=== PATIENT | male | born 1990 | race Caucasian/White ===

== ENCOUNTER 2017-12-20 17:14 | Emergency (ER) | payer OTHER ==
--- NOTE | 2017-12-20 17:20 | PDOC ---
History of Present Illness - History of Present Illness Initial Comments: 12/20/17 17:51 The patient is a 27 year old male with no significant PMH who presents to the emergency department with a left index finger injury that occurred earlier today. The patient reports that he was using a hammer when he hit his left index finger with it. The patient denies chest pain, shortness of breath, headache and dizziness. He denies any fever, chills, nausea, vomiting, diarrhea or constipation. The patient denies any other complaints. CONSTITUTIONAL: Absent: fever, no chills, no fatigue EYES: Absent: visual changes ENT: Absent: ear pain, no sore throat CARDIOVASCULAR: Absent: chest pain, no palpitations RESPIRATORY: Absent: cough, no SOB GI: Absent: abdominal pain, no nausea, no vomiting, no constipation, no diarrhea GENITOURINARY: Absent: dysuria, no frequency, no hematuria MUSKULOSKELETAL: (+) left index finger injury Absent: back pain, no arthralgia, no myalgia SKIN: Absent: rash NEURO: Absent: headache <Frederick Nunez - Last Filed: 12/20/17 17:51> - History of Present Illness Initial Comments: 12/20/17 17:49 Physical exam: Alert oriented well-developed well-nourished no acute distress cheerful and cooperative Afebrile, vital signs normal Trauma limited to the distal phalanx of the left index finger. There is a partial avulsion of the distal pulp involving the edge of the nail, radial aspect of the digit, not involving the joint. X-ray shows no fracture. Sensation to the distal phalanx appear to be impaired. However, flexion and extension of the DIP joint appears to be intact. Impression: Partial avulsion of the fingertip Plan: Antibiotics. Tetanus is up-to-date, one year ago. Dr. Carrington called and agrees to repair the injury in the emergency department. <Lucio Mcrae - Last Filed: 12/27/17 07:14> - General Chief Complaint: Injury Stated Complaint: INJURED LEFT INDEX FINGER HIT WITH HAMMER Time Seen by Provider: 12/20/17 17:17 Past History <Frederick Nunez - Last Filed: 12/20/17 17:51> - Suicide/Smoking/Psychosocial Hx Smoking History: Never smoked <Lucio Mcrae - Last Filed: 12/27/17 07:14> - Past Medical History Allergies/Adverse Reactions: Allergies Allergy/AdvReac Type Severity Reaction Status Date / Time No Known Allergies Allergy Verified 12/20/17 17:16 Home Medications: Ambulatory Orders Cephalexin [Keflex] 500 mg PO QID #20 capsule 12/20/17 *Physical Exam - Vital Signs Last Vital Signs Temp Pulse Resp BP Pulse Ox 98.2 F 84 18 118/85 100 12/20/17 17:15 12/20/17 17:15 12/20/17 17:15 12/20/17 17:15 12/20/17 17:15 <Frederick Nunez - Last Filed: 12/20/17 17:51> ED Treatment Course - Medications Given in the ED: ED Medications Discontinued Medications Generic Name Dose Route Start Last Admin Trade Name Freq PRN Reason Stop Dose Admin Cephalexin HCl 500 mg 12/20/17 17:26 12/20/17 17:35 Keflex - PO 12/20/17 17:27 500 mg ONCE ONE Administration <Frederick Nunez - Last Filed: 12/20/17 17:51> Medical Decision Making - Medical Decision Making X-rays showed soft tissue damage but no fracture or other abnormality of bone. Patient awaiting ER consultation with Dr. Carrington. Signed out to Dr. Hutchison 7 PM pending project management consultant evaluation and treatment. <Lucio Mcrae - Last Filed: 12/27/17 07:14> *DC/Admit/Observation/Transfer - Attestations Scribe Attestion: 12/20/17 17:52 Documentation prepared by Frederick Nunez, acting as certified medical biller for Lucio Catalan MD. <Frederick Nunez - Last Filed: 12/20/17 17:51> <Lucio Mcrae - Last Filed: 12/27/17 07:14> Diagnosis at time of Disposition: Finger laceration - Discharge Dispostion Disposition: HOME Condition at time of disposition: Stable - Prescriptions Prescriptions: Cephalexin [Keflex] 500 mg PO QID #20 capsule - Patient Instructions Additional Instructions: Keep the finger dry for the next 72 hours. Take Keflex one tablet 4 times a day for the next 5 days. Follow-up with Dr. Carrington in 1 week as per his instructions. Return to the emergency department immediately with ANY new, persistent or worsening symptoms. Continue any medications as previously prescribed by your physician. Thank you for coming to the Emergency Department today for your care. It was a pleasure to see you today. Please note that your evaluation is INCOMPLETE until you follow-up with your doctor.
[2017-12-20] MEDS ORDERED: CEPHALEXIN MONOHYDRATE 500 MG CAPSULE (UD) PO ONE (17:26)
[2017-12-20] MEDS ORDERED: CEPHALEXIN MONOHYDRATE 500 MG CAPSULE (UD) ONE (17:30)
[2017-12-20 17:31] VITALS: BP 118/85; PULSE 84; TEMP 98.2; BMI 26.4
[2017-12-20] MEDS ORDERED: LIDOCAINE HCL 1%, 10 MG/ML (20ML VIAL) ONE (17:31)
[2017-12-20] MEDS ORDERED: LIDOCAINE HCL 2% (20ML MULTI-DOSE VIAL) NR ONE (19:27)
--- NOTE | 2017-12-20 19:48 | PDOC ---
*Physical Exam - Vital Signs Last Vital Signs Temp Pulse Resp BP Pulse Ox 98.2 F 84 18 118/85 100 12/20/17 17:15 12/20/17 17:15 12/20/17 17:15 12/20/17 17:15 12/20/17 17:15 ED Treatment Course - Medications Given in the ED: ED Medications Discontinued Medications Generic Name Dose Route Start Last Admin Trade Name Carmelina PRN Reason Stop Dose Admin Cephalexin HCl 500 mg 12/20/17 17:26 12/20/17 17:35 Keflex - PO 12/20/17 17:27 500 mg ONCE ONE Administration Progress Note - Progress Note Progress Note: Care of this patient was transferred to tn from Dr. Fuentes at 7 PM Patient is waiting for Dr. Carrington to come to the emergency room and repair a partial avulsion of the tip of his left index finger. 19:30 Dr. Carrington arrival to the emergency room and repaired the laceration. Patient discharged on Keflex will follow-up with Dr. Carrington and 1 week *DC/Admit/Observation/Transfer Diagnosis at time of Disposition: Finger laceration Qualifiers: Encounter type: initial encounter Finger: index finger Damage to nail status: with damage Foreign body presence: without foreign body Laterality: left Qualified Code(s): S61.311A - Laceration without foreign body of left index finger with damage to nail, initial encounter - Discharge Dispostion Disposition: HOME Condition at time of disposition: Stable Decision to Admit order: No - Referrals - Patient Instructions Additional Instructions: Keep the finger dry for the next 72 hours. Take Keflex one tablet 4 times a day for the next 5 days. Follow-up with Dr. Carrington in 1 week as per his instructions. Return to the emergency department immediately with ANY new, persistent or worsening symptoms. Continue any medications as previously prescribed by your physician. Thank you for coming to the Emergency Department today for your care. It was a pleasure to see you today. Please note that your evaluation is INCOMPLETE until you follow-up with your doctor. - Post Discharge Activity
--- NOTE | 2017-12-21 11:13 | OP ---
DATE OF OPERATION: 12/20/2017 PROCEDURE: Left index finger, complex laceration washout and repair. ATTENDING SURGEON: Caridad Jacob MD REFERRING PHYSICIAN: . HISTORY: This is a 27-year-old male who suffered a hammer injury to the tip of the left index finger with a soft tissue crush injury. There is no bony fracture or subungual injury. Patient is brought to [facility] Emergency Room for evaluation and treatment. PAST MEDICAL AND SURGICAL HISTORY: Noncontributory. REVIEW OF SYSTEMS: Negative for any bleeding, coagulopathy, recent . PHYSICAL EXAMINATION: HEENT: Head is atraumatic, normocephalic. EXTREMITIES: Warm and well perfused. There is an avulsion laceration onto the hyponychium, eponychium, and paronychial tissues of the left index finger. There is no subungual pathology. Patient is counseled on the risks, benefits, and alternatives for washout and repair of laceration. He understands and agrees to proceed. PROCEDURE: Patient's finger was given a 3 mL 2% plain digital block, after which it was copiously irrigated with normal saline and scrubbed. The nail plate was found to be totally adherent. There was no indication for removal. The eponychial fold was repaired with a series of interrupted buried 5-0 Vicryl suture. The hyponychial fold was repaired with a series of interrupted 4-0 nylon suture. The paronychia was repaired with a trans nail plate 4-0 nylon suture to the paronychial tissue. The wound was dressed with bacitracin and Kerlix. The patient was instructed on elevation and Keflex. He will follow up with Dr. Jacob in 1 week. CARIDAD JACOB M.D. [id number]
== END 2017-12-20 19:54 | disposition home or self-care (01) ==
LOC: FER 17:14
PROC: 0JQK0ZZ Repair Left Hand Subcutaneous Tissue and Fascia, Open Approach (ICD-10-PCS; principal; 2017-12-20)
DX: S61.311A Laceration without foreign body of left index finger with damage to nail, initial encounter (principal); W22.8XXA Striking against or struck by other objects, initial encounter; Y93.9 Activity, unspecified; Y92.9 Unspecified place or not applicable
CPT/HCPCS: 13131; 73140-TC-LT-FY; 99282-25

== ENCOUNTER 2018-06-08 08:33 | Emergency (ER) | payer OTHER ==
--- NOTE | 2018-06-08 08:42 | PDOC ---
History of Present Illness - General Chief Complaint: Rash Stated Complaint: FINE RASH TO ARMS Time Seen by Provider: 06/08/18 08:42 History Source: Patient Exam Limitations: No Limitations - History of Present Illness Initial Comments: 06/08/18 08:59 pt presents to the ED complaining of a two day history of rash to his forearms, torso, face and scrotum. Patient states that he was cutting an unknown shrub on Monday and monday, and that he touched his face and genitals without washing his hands. He reports a history of severe allergy to poision jaimie, but does not remember seeing poision jaimie on the shrub that he was cutting. Denies shortness of breath or difficulty swallowing. Denies facial swelling. Denies sick contacts. 06/08/18 09:01 Location: reports: face, genitalia, torso Associated Symptoms: reports: denies symptoms Past History - Past Medical History Allergies/Adverse Reactions: Allergies Allergy/AdvReac Type Severity Reaction Status Date / Time No Known Allergies Allergy Verified 06/08/18 08:39 Home Medications: Ambulatory Orders Diphenhydramine [Benadryl -] 50 mg PO QID PRN #18 capsule 06/08/18 Hydrocortisone 2.5% Lotion [Hytone 2.5% Lotion -] 1 applic TP BID #1 bottle Prednisone [Deltasone] 60 mg PO DAILY #12 tablet 06/08/18 COPD: No - Immunization History Immunization Up to Date: Yes - Suicide/Smoking/Psychosocial Hx Smoking History: Never smoked Hx Alcohol Use: Yes (SOCIAL) Drug/Substance Use Hx: No Substance Use Type: Alcohol Review of Systems - Review of Systems Able to Perform ROS?: Yes Is the patient limited Khmer proficient: No Constitutional: No: Symptoms Reported, See HPI, Chills, Diaphoresis, Fever, Loss of Appetite, Malaise, Night Sweats, Weakness, Weight Stable, Unintentional Wgt. Loss, Unexplained wgt Loss, Other HEENTM: No: Symptoms Reported, See HPI, Eye Pain, Blurred Vision, Tearing, Recent change in vision, Double Vision, Cataracts, Ear Pain, Ocular Prothesis, Ear Discharge, Nose Pain, Nose Congestion, Tinnitus, Nose Bleeding, Hearing Loss , Throat Pain, Throat Swelling, Mouth Pain, Dental Problems, Difficulty Swallowing, Mouth Swelling, Other Respiratory: No: Symptoms reported, See HPI, Cough, Orthopnea, Shortness of Breath, SOB with Exertion, SOB at Rest, Stridor, Wheezing, Productive cough, Hemoptysis, Other Cardiac (ROS): No: Symptoms Reported, See HPI, Chest Pain, Edema, Irregular Heart Rate, Lightheadedness, Palpitations, Syncope, Chest Tightness, Other ABD/GI: No: Symptoms Reported, See HPI, Abdominal Distended, Abd. Pain w/ defecation, Blood Streaked Bowels, Constipated, Diarrhea, Difficulty Swallowing , Nausea, Poor Appetite, Poor Fluid Intake, Rectal Bleeding, Vomiting, Indigestion, Abdominal cramping, Tarry Stools, Other : No: Symptoms Reported, See HPI, Burning, Dysuria, Discharge, Frequency, Flank Pain, Hematuria, Incontinence, Pain, Urgency, Testicular Mass, Testicular Swelling, Lesions, Testicular Pain, Other Musculoskeletal: No: Symptoms Reported, See HPI, Back Pain, Gout, Joint Pain, Joint Swelling, Muscle Pain, Muscle Weakness, Neck Pain, Joint Stiffness, Other Integumentary: Yes: Erythema, Pruritus, Rash. No: Symptoms Reported, See HPI, Bruising, Change in Color, Change in Hair/Nails, Dryness, Flushing, Lesions, Lumps, Pallor, Sweating, Other *Physical Exam - Physical Exam General Appearance: Yes: Nourished, Appropriately Dressed. No: Apparent Distress, Disheveled, Mild Distress, Moderate Distress, Severe Distress, Alcohol on Breath, Intoxicated, Cachetic, Obese, Thin, Other HEENT: positive: Normal ENT Inspection (few areas of erythematous, vesicular rash at R corner of mouth and next to R eye. No swelling of lip or eyelid. No lesions inside mouth. No swelling of the tongue or soft palette.) Male Genitalia: positive: other (+ redness and swelling to the skin of scrotum without testicular tenderness. No rash on the surrounding groin. ) Integumentary: positive: Normal Color, Dry, Warm, Rash (+ blanching erythematous rash to bilateral forearms, with scattered areas on the torso and face. No rash in the axilla or in the web spaces between the fingers or toes. ) Medical Decision Making - Medical Decision Making 06/08/18 09:08 Pt presents to the ED complaining of pruritic rash to the forearms, torso and face after cutting an unknown shrub. No systemic signs of allergic reaction, no facial swelling. Rash is inconsistent with scabies. Will discharge home with rx for prednisone and benadryl and advise to return if symptoms worsen. *DC/Admit/Observation/Transfer Diagnosis at time of Disposition: Contact dermatitis Qualifiers: Contact dermatitis type: allergic Contact dermatitis trigger: unspecified trigger Qualified Code(s): L23.9 - Allergic contact dermatitis, unspecified cause - Discharge Dispostion Disposition: HOME Condition at time of disposition: Good Decision to Admit order: No - Prescriptions Prescriptions: Diphenhydramine [Benadryl -] 50 mg PO QID PRN #18 capsule PRN Reason: For Itching Hydrocortisone 2.5% Lotion [Hytone 2.5% Lotion -] 1 applic TP BID #1 bottle Prednisone [Deltasone] 60 mg PO DAILY #12 tablet - Referrals Referrals: Jair Martinez MD [Primary Care Provider] - - Patient Instructions Printed Discharge Instructions: DI for Contact Dermatitis Additional Instructions: return to the Ed for worsening rash despite treatment, especially rash with fever, facial swelling or shortness of breath. Take the prednisone starting tomorrow, three pills per day, until it is all gone. Take the benadryl as needed--keep in mind that it may make you drowsy. - Post Discharge Activity
[2018-06-08 08:44] VITALS: BP 132/99; PULSE 97; TEMP 98.2; BMI 25.7
[2018-06-08] MEDS ORDERED: predniSONE 20 MG TABLET (UD) PO ONE (08:55)
[2018-06-08] MEDS ORDERED: predniSONE 20 MG TABLET (UD) ONE (08:58)
== END 2018-06-08 09:04 | disposition home or self-care (01) ==
LOC: FER 08:33
PROC: 3E023GC Introduction of Other Therapeutic Substance into Muscle, Percutaneous Approach (ICD-10-PCS; principal; 2018-06-08)
DX: L23.9 Allergic contact dermatitis, unspecified cause (principal)
CPT/HCPCS: 96372; 99281-25